=== PATIENT | female | born 1950 | race Caucasian/White ===

== ENCOUNTER 2019-01-05 10:44 | Outpatient (CLI) | payer MEDICARE, MEDICAID ==
--- NOTE | 2019-01-05 11:31 | RAD ---
2 views chest. HISTORY: Neoplasm of kidneys. PA and lateral views of the chest is obtained. The lungs are well aerated. No evidence of active intrathoracic disease seen. No evidence of effusion s, pneumonia or pneumothorax seen. Surgical clips seen in the left upper quadrant of the abdomen. IMPRESSION: unremarkable 2 views chest.
== END 2019-01-05 10:45 | disposition home or self-care (01) ==
LOC: NAV RAD 10:44
PROVIDERS: ATTEND Family Medicine
DX: Z08 Encounter for follow-up examination after completed treatment for malignant neoplasm (principal); Z85.528 Personal history of other malignant neoplasm of kidney
CPT/HCPCS: 71046